=== PATIENT | female | born 1990 | race Caucasian/White ===

== ENCOUNTER 2021-04-30 23:31 | Emergency (ER) | payer OTHER ==
[~2021-04-30 23:31] MED LIST: CELEXA10 MG PO
== END 2021-05-01 01:44 | disposition home or self-care (01) ==
LOC: ER1 23:31
DX: M54.2 Cervicalgia (principal); R07.9 Chest pain, unspecified; R51.9 Headache, unspecified; Z91.14 Patient's other noncompliance with medication regimen; Y04.8XXA Assault by other bodily force, initial encounter
CPT/HCPCS: 71046; 99284